=== PATIENT | female | born 1975 | race Caucasian/White ===

== ENCOUNTER 2016-04-18 09:13 | Emergency (ER) | payer MEDICAID ==
--- NOTE | 2016-04-18 10:20 | ER Document Report ---
ED Medical Screen (RME) - General Chief Complaint: Neck and Upper Back Pain Stated Complaint: NECK PAIN Time seen by provider: 10:15 Mode of Arrival: Ambulatory Information source: Patient TRAVEL OUTSIDE OF THE [place] IN LAST 30 DAYS: No - HPI Patient complains to provider of: RIGHT NECK, SHOULDER, ARM PAIN Onset: Other - [place] NIGHT Onset/Duration: Sudden Context: Patient has history of chronic neck pain. Sees Dr. Camara at [facility]. Was previously on Percocet 15 mg. Currently only on Flexeril and Lyrica for pain. Medicaid just reinstated. Waiting on referral to pain management. Denies new injury. Was seen in ER on 04/13 for same. Patient has follow-up appointment this Sunday with Dr. Camara Quality of pain: Pressure, Throbbing Severity: Severe Pain Level: 5 Associated Symptoms: Body/muscle aches Exacerbated by: Movement Relieved by: Denies Similar symptoms previously: Yes Recently seen / treated by doctor: Yes - Related Data Smoking: Cigarettes Frequency of alcohol use: None Drug Abuse: None Pertinent History: PINCHED NERVES IN NECK. Allergies/Adverse Reactions: No Known Allergies Allergy (Verified 04/18/16 09:53) Past Medical History - General Last Menstrual Period: 04/08/16 Neurological Medical History: Reports: Hx Migraine Musculoskeltal Medical History: Reports Hx Arthritis, Reports Hx Musculoskeletal Deformity, Reports Hx Musculoskeletal Trauma Past Surgical History: Reports: Hx Tubal Ligation - Immunizations Immunizations up to date: No Hx Diphtheria, Pertussis, Tetanus Vaccination: No Physical Exam - Vital signs Vitals: Temp Pulse Resp BP Pulse Ox 98.1 F 101 H 18 96/59 L 99 04/18/16 09:52 04/18/16 09:52 04/18/16 09:52 04/18/16 09:52 04/18/16 09:52 Course - Vital Signs Vital signs: Temp Pulse Resp BP Pulse Ox 98.1 F 101 H 18 96/59 L 99 04/18/16 09:52 04/18/16 09:52 04/18/16 09:52 04/18/16 09:52 04/18/16 09:52
[2016-04-18] MEDS ORDERED: DEXAMETHASONE SOD PHOS INJ 10 MG/1 ML VIAL IM ONE (10:53)
[2016-04-18] MEDS ORDERED: METHYLPREDNISOLONE ACETATE INJ 40 MG/1 ML ML IM STA (10:54)
[2016-04-18] MEDS ORDERED: KETOROLAC TROMETHAMINE 10 MG TABLET PO ONE (10:56)
--- NOTE | 2016-04-18 11:03 | ER Document Report ---
Addendum entered and electronically signed by KORI PERERA FNP 11:14: Discharge - Discharge Clinical Impression: Torticollis, acquired Disposition: HOME, SELF-CARE Instructions: Torticollis ([facility]) Additional Instructions: Warm compresses and heating pad 4-5 times a day. Follow-up with Dr. Camara in 2-3 days. return to the emergency room for any change or worsening condition. Prescriptions: Hydrocodone/Acetaminophen [Wallagrass 5-325 Tablet] 1 each PO Q4 PRN #20 tablet PRN Reason: Methocarbamol [Robaxin 750 mg Tablet] 750 mg PO ASDIR PRN #40 tablet PRN Reason: Naproxen Sodium [Naproxen Sodium ER] 500 mg PO Q12 PRN #20 tablet.sa PRN Reason: Referrals: PENNIE WHEELER MD [Primary Care Provider] - Follow up as needed Original Note: ED Neck/Back Problem - General Chief Complaint: Neck and Upper Back Pain Stated Complaint: NECK PAIN Mode of Arrival: Ambulatory Information source: Patient TRAVEL OUTSIDE OF THE [place] IN LAST 30 DAYS: No - HPI Patient complains to provider of: Pain, Neck - Discomfort lateral to midline right cervical area. No injury no trauma has been consistent since [place] morning when she woke like this.. Onset: Other Where: Home Onset: Gradual Timing: Waxing and waning Quality of pain: Achy, Burning. denies: Fullness, Pressure Associated symptoms: Radiation to arm - To right arm. denies: Chest pain, Abdominal pain, Chills, Constipation, Fever, Motor loss, Numbness/tingling Exacerbated by: Movement of neck - Increases with lateral rotation - Related Data Allergies/Adverse Reactions: No Known Allergies Allergy (Verified 04/18/16 09:53) Past Medical History - General Information source: Patient Last Menstrual Period: 04/08/16 - Social History Smoking Status: Current Every Day Smoker Frequency of alcohol use: None Drug Abuse: None Family History: Arthritis, DM. denies: CAD, CVA, Hyperlipidemia, Hypertension, Malignancy, Thyroid Disfunction Patient has suicidal ideation: No Patient has homicidal ideation: No Neurological Medical History: Reports: Hx Migraine Musculoskeltal Medical History: Reports Hx Arthritis, Reports Hx Musculoskeletal Deformity, Reports Hx Musculoskeletal Trauma Past Surgical History: Reports: Hx Tubal Ligation - Immunizations Immunizations up to date: No Hx Diphtheria, Pertussis, Tetanus Vaccination: No Review of Systems - Review of Systems Constitutional: No symptoms reported EENT: No symptoms reported Cardiovascular: No symptoms reported Respiratory: No symptoms reported Gastrointestinal: No symptoms reported Genitourinary: No symptoms reported Female Genitourinary: No symptoms reported Musculoskeletal: Neck pain Skin: No symptoms reported Hematologic/Lymphatic: No symptoms reported Neurological/Psychological: No symptoms reported Physical Exam - Vital signs Vitals: Temp Pulse Resp BP Pulse Ox 98.1 F 101 H 18 96/59 L 99 04/18/16 09:52 04/18/16 09:52 04/18/16 09:52 04/18/16 09:52 04/18/16 09:52 - General General appearance: Appears well, Alert - HEENT Head: Normocephalic, Atraumatic Eyes: Normal Pupils: PERRL - Respiratory Respiratory status: No respiratory distress Chest status: Nontender Breath sounds: Normal Chest palpation: Normal - Cardiovascular Rhythm: Regular Heart sounds: Normal auscultation Murmur: No - Abdominal Inspection: Normal Distension: No distension Bowel sounds: Normal Tenderness: Nontender Organomegaly: No organomegaly - Back Back: Normal, Nontender, Other - This 40-year-old female presented to the emergency room today stating she had discomfort right lateral of her C-spine she 's had no injury she's had no fall she woke with this on morning chest no crepitus no tenderness on palpation of midline. She doesn't fact have palpable spasm which radiates through from the right side to the subscapular area.. No: Tender, Vertebra tenderness - Extremities General upper extremity: Normal inspection, Nontender, Normal color, Normal ROM , Normal temperature General lower extremity: Normal inspection, Nontender, Normal color, Normal ROM , Normal temperature, Normal weight bearing. No: Humberto's sign Course - Vital Signs Vital signs: Temp Pulse Resp BP Pulse Ox 98.1 F 101 H 18 96/59 L 99 04/18/16 09:52 04/18/16 09:52 04/18/16 09:52 04/18/16 09:52 04/18/16 09:52 Discharge - Discharge Clinical Impression: Torticollis, acquired Disposition: HOME, SELF-CARE Instructions: Torticollis (REPLACED BY [facility]) Additional Instructions: Warm compresses and heating pad 4-5 times a day. Follow-up with Dr. Camara in 2-3 days. return to the emergency room for any change or worsening condition. Prescriptions: Hydrocodone/Acetaminophen [Wallagrass 5-325 Tablet] 1 each PO Q4 PRN #20 tablet PRN Reason: Methocarbamol [Robaxin 750 mg Tablet] 750 mg PO ASDIR PRN #40 tablet PRN Reason: Naproxen Sodium [Naproxen Sodium ER] 500 mg PO Q12 PRN #20 tablet.sa PRN Reason:
[2016-04-18 11:30] VITALS: BP 102/62
== END 2016-04-18 11:35 | disposition home or self-care (01) ==
LOC: ER 09:13
DX: M43.6 Torticollis (principal); M54.2 Cervicalgia; F17.200 Nicotine dependence, unspecified, uncomplicated
CPT/HCPCS: 99283; 96372; J1020; J3490; J1100

== ENCOUNTER 2018-01-31 20:30 | Emergency (ER) | payer MEDICAID, OTHER ==
--- NOTE | 2018-01-31 23:23 | ER Document Report ---
ED Psych Disorder / Suicide - General Mode of Arrival: Ambulatory Information source: Patient TRAVEL OUTSIDE OF THE [place] IN LAST 30 DAYS: No - HPI Patient complains to provider of: Suicidal ideation Onset was: Cannot confirm Quality of pain: No pain Suicide Risk Factors: Depressed, Lack of social support, No spouse Normal mood: No Associated symptoms: Depressed, Flat affect Similar symptoms previously: Yes Recently seen / treated by doctor: No <SANTI WILKES - Last Filed: 02/01/18 01:49> <CALE YIN - Last Filed: 02/01/18 13:11> - General Chief Complaint: Suicidal Ideation Stated Complaint: ANXIETY, DEPRESSION, SUICIDAL Time Seen by Provider: 01/31/18 23:21 - HPI Notes: Patient is a 42-year-old female presenting to the emergency room today complaining of worsening depression with thoughts of suicide, she does not have an active plan, just reports no social support and she is not currently in any type of mental health program or any antidepressant medications (SANTI WILKES) - Related Data Allergies/Adverse Reactions: No Known Allergies Allergy (Verified 04/18/16 09:53) Past Medical History - General Information source: Patient - Social History Smoking Status: Current Every Day Smoker Frequency of alcohol use: None Drug Abuse: None Family History: Arthritis, DM. denies: CAD, CVA, Hyperlipidemia, Hypertension, Malignancy, Thyroid Disfunction Patient has suicidal ideation: No Patient has homicidal ideation: No Neurological Medical History: Reports: Hx Migraine Renal/ Medical History: Denies: Hx Peritoneal Dialysis Musculoskeletal Medical History: Reports Hx Arthritis, Reports Hx Musculoskeletal Deformity, Reports Hx Musculoskeletal Trauma Past Surgical History: Reports: Hx Tubal Ligation - Immunizations Immunizations up to date: No Hx Diphtheria, Pertussis, Tetanus Vaccination: No <SANTI WILKES - Last Filed: 02/01/18 01:49> Review of Systems - Review of Systems Constitutional: No symptoms reported EENT: No symptoms reported Cardiovascular: No symptoms reported Respiratory: No symptoms reported Gastrointestinal: No symptoms reported Genitourinary: No symptoms reported Female Genitourinary: No symptoms reported Musculoskeletal: No symptoms reported Skin: No symptoms reported Hematologic/Lymphatic: No symptoms reported Neurological/Psychological: See HPI -: Yes All other systems reviewed and negative <SANTI WILKES - Last Filed: 02/01/18 01:49> Physical Exam - Vital signs Interpretation: Normal - General General appearance: Appears well, Alert - HEENT Head: Normocephalic, Atraumatic Eyes: Normal Pupils: PERRL - Respiratory Respiratory status: No respiratory distress Chest status: Nontender Breath sounds: Normal Chest palpation: Normal - Cardiovascular Rhythm: Regular Heart sounds: Normal auscultation Murmur: No - Abdominal Inspection: Normal Distension: No distension Bowel sounds: Normal Tenderness: Nontender Organomegaly: No organomegaly - Back Back: Normal, Nontender - Extremities General upper extremity: Normal inspection, Nontender, Normal color, Normal ROM , Normal temperature General lower extremity: Normal inspection, Nontender, Normal color, Normal ROM , Normal temperature, Normal weight bearing. No: Humberto's sign - Neurological Neuro grossly intact: Yes Cognition: Normal Orientation: AAOx4 Haily Coma Scale Eye Opening: Spontaneous Plaza Coma Scale Verbal: Oriented Plaza Coma Scale Motor: Obeys Commands Plaza Coma Scale Total: 15 Speech: Normal Motor strength normal: LUE, RUE, LLE, RLE Sensory: Normal - Psychological Associated symptoms: Depressed, Flat affect - Skin Skin Temperature: Warm Skin Moisture: Dry Skin Color: Normal <SANTI WILKES - Last Filed: 02/01/18 01:49> - Vital signs Vitals: Temp Pulse Resp BP Pulse Ox 98.6 F 87 18 107/86 H 97 01/31/18 20:41 01/31/18 20:41 01/31/18 20:41 01/31/18 20:41 01/31/18 20:41 Course - Laboratory Result Diagrams: 01/31/18 21:22 01/31/18 21:22 - EKG Interpretation by Pr EKG shows normal: Sinus rhythm Rate: Normal Rhythm: NSR <SANTI WILKES - Last Filed: 02/01/18 01:49> - Laboratory Result Diagrams: 01/31/18 21:22 01/31/18 21:22 <CALE YIN - Last Filed: 02/01/18 13:11> - Re-evaluation Re-evalutation: 02/01/18 01:06 Patient presents to the emergency room complaining of worsening depression feelings of hopelessness and thoughts of suicide, no active plan but she is not currently involved in any type of mental health program or taking any antidepressant medications, she is here voluntarily and agrees to remain in the emergency department until she can be evaluated by our mental health team for further treatment recommendations (SANTI WILKES) - Vital Signs Vital signs: Temp Pulse Resp BP Pulse Ox 98.6 F 73 16 102/50 L 100 02/01/18 12:23 02/01/18 12:23 02/01/18 12:23 02/01/18 12:23 02/01/18 12:23 - Laboratory Laboratory results interpreted by me: 01/31/18 01/31/18 01/31/18 21:22 21:22 23:30 WBC 12.7 H RDW 14.7 H Total Protein 8.4 H Ur Leukocyte Esterase SMALL H Salicylates < 1.0 L Acetaminophen < 10 L Discharge <SANTI WILKES - Last Filed: 02/01/18 01:49> <CALE YIN - Last Filed: 02/01/18 13:11> - Discharge Clinical Impression: Depression, Suicidal ideation, Anxiety Condition: Stable Disposition: HOME, SELF-CARE Referrals: PENNIE WHEELER MD [Primary Care Provider] - Follow up as needed [facility] [Outside] - Follow up as needed [facility] [Outside] - Follow up in 3-5 days
[2018-01-31 23:39] LABS: ALANINE AMINOTRANSFERASE 20 U/L (9-52); ALBUMIN 4.5 g/dL (3.5-5.0); ALKALINE PHOSPHATASE 54 U/L (38-126); ANION GAP 12 (5-19); ASPARTATE AMINO TRANSFERASE 16 U/L (14-36); BILIRUBIN,DIRECT 0.2 mg/dL (0.0-0.4); BILIRUBIN,TOTAL 0.6 mg/dL (0.2-1.3); BLOOD UREA NITROGEN 10 mg/dL (7-20); CALCIUM 10.1 mg/dL (8.4-10.2); CARBON DIOXIDE 27 mmol/L (22-30); CHLORIDE 105 mmol/L (98-107); GLUCOSE 81 mg/dL (75-110); POTASSIUM 3.8 mmol/L (3.6-5.0); SODIUM 143.8 mmol/L (137-145); TOTAL PROTEIN 8.4 g/dL (6.3-8.2)
[2018-01-31 23:41] LABS: ACETAMINOPHEN < 10 ug/mL (10-30); ALCOHOL < 10 mg/dL (NONE DETECTED); SALICYLATE < 1.0 mg/dL (2.0-20.0)
[2018-01-31 23:46] LABS: ABSOLUTE BASOPHILS # (AUTO) 0.1 10^3/uL (0.0-0.2); ABSOLUTE EOSINOPHILS # (AUTO) 0.1 10^3/uL (0.0-0.6); ABSOLUTE LYMPHOCYTES (AUTO) 4.4 10^3/uL (0.5-4.7); ABSOLUTE MONOCYTES (AUTO) 0.7 10^3/uL (0.1-1.4); ABSOLUTE NEUT (AUTO) 7.3 10^3/uL (1.7-8.2); BASOPHILS % (AUTO) 0.6 % (0-2); HEMATOCRIT 44.6 % (36.0-47.0); HEMOGLOBIN 14.9 g/dL (12.0-15.5); MEAN CORPUSCULAR HEMOGLOBIN 31.9 pg (27.0-33.4); MEAN CORPUSCULAR HGB CONC 33.4 g/dL (32.0-36.0); MEAN CORPUSCULAR VOLUME 95 fl (80-97); MONOCYTES % (AUTO) 5.9 % (3-13); PLATELET COUNT 371 10^3/uL (150-450); RED BLOOD COUNT 4.68 10^6/uL (3.72-5.28); RED CELL DISTRIBUTION WIDTH 14.7 % (11.5-14.0); SEGMENTED NEUTROPHILS % (AUTO) 57.5 % (42-78); TOTAL CELLS COUNTED % (AUTO) 100 %; WHITE BLOOD COUNT 12.7 10^3/uL (4.0-10.5)
[2018-02-01 00:02] LABS: APPEARANCE,URINE SLIGHTLY-CLOUDY; BILIRUBIN,URINE NEGATIVE (NEGATIVE); COLOR,URINE YELLOW; GLUCOSE, URINE NEGATIVE (NEGATIVE); KETONES,URINE NEGATIVE (NEGATIVE); LEUKOCYTE ESTERASE,URINE SMALL (NEGATIVE); NITRITE,URINE NEGATIVE (NEGATIVE); PROTEIN,URINE NEGATIVE (NEGATIVE); URINE SPECIFIC GRAVITY 1.012; UROBILINOGEN,URINE NEGATIVE mg/dL (<2.0)
[2018-02-01 01:58] LABS: URINE AMPHETAMINES SCREEN NEGATIVE; URINE BARBITURATES SCREEN NEGATIVE; URINE BENZODIAZEPINES SCREEN NEGATIVE; URINE COCAINE SCREEN NEGATIVE; URINE MARIJUANA (THC) SCREEN NEGATIVE; URINE METHADONE SCREEN NEGATIVE; URINE PHENCYCLIDINE SCREEN NEGATIVE
[2018-02-01] MEDS ORDERED: DIPHENHYDRAMINE HCL 25 MG CAPSULE PO ONE (02:56)
--- NOTE | 2018-02-01 07:59 | EKG REPORT ---
SEVERITY:- ABNORMAL ECG - SINUS RHYTHM LEFT ANTERIOR FASCICULAR BLOCK BORDERLINE T ABNORMALITIES, ANTERIOR LEADS : Confirmed by: Miguel Florian MD 01-Feb-2018 07:59:00
--- NOTE | 2018-02-01 10:44 | ER Document Report ---
Doctor's Note Notes: 02/01/18 10:43 Rounds: Chart reviewed. Patient being evaluated for depression and suicidal ideation. Sleeping soundly so not awakened at this time. To be seen by mental health. Vital signs are all normal. Lab studies were normal except for a white count of very slight elevation at 12,700. Patient appears to be medically stable for transfer or discharge. Rebeca Butcher MD
[2018-02-01] MEDS ORDERED: BUSPIRONE HCL 10 MG TABLET PO ONE (11:35)
[2018-02-01] MEDS ORDERED: VENLAFAXINE HCL 37.5 MG CAP.SR.24H PO ONE (11:35)
--- NOTE | 2018-02-01 12:56 | PSYCHOLOGICAL NOTE ---
Psych Note - Psych Note Date seen by psych provider: 02/01/18 Time seen by psych provider: 07:30 Psych Note: Reason for Consult: suicidal ideation Patient is a 42-year-old female presenting to the emergency room today complaining of worsening depression with thoughts of suicide, she does not have an active plan, just reports no social support and she is not currently in any type of mental health program or any antidepressant medications. Patient disclosed that she arrived to [facility] via EMS because she was having anxiety and suicidal ideation. She reports that she is had suicidal ideation and anxiety for "a very long time" however recently it has been getting "stronger." When asked if the patient had a plan she denies stating that they are just "dark and ugly thoughts." Patient reports it is been over a year since she has had outpatient mental health services or taking any medications. She states she stopped taking medications and going to therapy because she thought she was "getting better." She disclosed that she has diagnosis of PTSD anxiety and depression; PTSD stems from childhood trauma. She disclosed that she used to go to [facility] however states that she would like information on going to a different provider. Patient confirms that she would like medications and would follow through with medication recommendations and therapeutic services. Patient is alert and orientated to person, place, time and circumstance. Mood is euthymic with congruent affect. Patient endorses passive suicidal ideation i.e. no plans means or intent. Patient denies homicidal ideation. Delusions are absent behaviors congruent with an intact reality based presentation i.e. organized and linear thought process. Eye contact was well-maintained. Conversational speech is within normal rate, tone and prosody. Intellectual abilities appear to be within the average range. Attention and concentration were good. Insight, judgment, impulse control are fair. Medication recommendations per [facility]'s contracted psychiatrist Dr. Linda VILLASEÑOR are as follows Effexor 37.5 mg daily BuSpar 10 mg twice daily diagnosis 309.81 (F43.10) posttraumatic stress disorder per history provided by patient 300.00 (F41.9) unspecified anxiety disorder per history provided by patient Impression\\plan: Patient is cleared from acute psychiatric services. Patient discloses passive suicidal ideation with no plans means or intent. She reports that she has had anxiety and suicidal ideation for very long time however reports that recently has become more intense with increased frequency. She reports being off medication and not having therapeutic services for over a year. She would like assistance in getting established with a provider again. Patient is recommended to follow up with outpatient mental health services through [facility]. Medication recommendations have been provided. Dr. Light was consulted and the care management this patient; attending physician is agreement with recommendations and disposition here.
[2018-02-01] MEDS ORDERED: BUSPIRONE HCL 10 MG TABLET PO SCH (23:15)
--- NOTE | 2018-02-01 23:21 | ER Document Report ---
Doctor's Note Notes: 02/01/18 23:20 Notified by nursing staff the patient reports she is feeling quite anxious because she is unsure of what the plan is for her in the long-term, she is also wondering if she can have some type of medication to help her deal with the anxiety, I did speak with patient I let her know that we are still working on finding her appropriate next level of care and that is undetermined at this point in time, I did know in the psychiatric provider note that patient was recommended to have Effexor 37.5 mg daily and BuSpar 10 mg twice daily, so these orders were placed in [facility], patient also reports she has restless leg syndrome and takes either Percocet and/or Lyrica for this, so I ordered her a dose of Lyrica to be given at night as well, patient is otherwise resting comfortably and has no other concerns at this time
[2018-02-01] MEDS ORDERED: PREGABALIN 50 MG CAPSULE PO SCH (23:30)
[2018-02-01] MEDS ORDERED: PREGABALIN 50 MG CAPSULE PO ONE (23:30)
[2018-02-02 09:33] VITALS: BP 106/69
[2018-02-02] MEDS ORDERED: VENLAFAXINE HCL 37.5 MG CAP.SR.24H PO SCH (10:00)
[2018-02-02] MEDS ORDERED: BUSPIRONE HCL 10 MG TABLET PO SCH (10:00)
--- NOTE | 2018-02-02 12:57 | ER Document Report ---
Doctor's Note Notes: 02/02/18 12:56 This 42-year-old female presented for anxiety and depression. She was deemed likely appropriate for discharge home then subsequently decompensated, she became incredibly upset increasingly depressed. She was evaluated by the mental health services team today and deemed appropriate for inpatient management, she is currently can undergo transport to [facility]. Patient has been medically cleared for transport, she will be taken, and patella has been filled out for this patient. Discharge - Discharge Clinical Impression: Depression, Suicidal ideation, Anxiety Condition: Stable Disposition: PSYCH HOSP/UNIT Referrals: [facility] [Outside] - Follow up in 3-5 days [facility] [Outside] - Follow up as needed PENNIE WHEELER MD [Primary Care Provider] - Follow up as needed
[2018-02-02] MEDS ORDERED: PREGABALIN 50 MG CAPSULE PO SCH (22:00)
== END 2018-02-02 13:47 ==
LOC: ER 20:30
DX: F32.9 Major depressive disorder, single episode, unspecified (principal); R45.851 Suicidal ideations; F41.9 Anxiety disorder, unspecified; Z98.51 Tubal ligation status; F17.200 Nicotine dependence, unspecified, uncomplicated
CPT/HCPCS: 93005; 99285; 36415; 80307 ×4; 85025; 80053; 81001; 93010; J3490 ×6